=== PATIENT | female | born 1995 | race Caucasian/White ===

== ENCOUNTER → 2017-04-09 | Outpatient (CLI) | payer BC ==
[~2017-04-09] MED LIST: ALDACTONE 25MG25 M1 PO; ALLEGRA 180MG180 MG PO; BACTRIM DS 8001 TAB PO; BIOTIN1 POW; NORCO 325 MG-7.1 TAB PO; ZOFRAN ODT4 MG PO
== END ==
LOC: COL.CARD 06:59
DX: R00.2 Palpitations (principal)